=== PATIENT | female | born 1995 | race Hispanic/Latino ===

== ENCOUNTER 2018-08-17 13:43 | Outpatient (CLI) | payer OTHER ==
[2018-08-17 14:06] LABS: #Basophils 0.2 thou/uL (0.0-0.2); #Lymphocytes 5.4 thou/uL (1.20-3.40); #Monocytes 1.1 thou/uL (0.11-0.59); #Neutrophils 4.5 thou/uL (1.40-6.50); %Basophils 1.4 % (0.0-1.0); %Eosinophils 0.2 % (0.0-10.0); %Lymphocytes 48.9 % (21.0-51.0); %Monocytes 9.5 % (0.0-10.0); Mean Corpuscular HGB CONC 33.5 g/dL (32.0-36.0); Mean Corpuscular Hemoglobin 30.2 pg (27.0-31.0); Mean Corpuscular Volume 90.1 fL (78.0-98.0); Mean Platelet Volume 6.2 fL (7.4-10.4); Platelet Count 269 thou/uL (130-400); RBC Distribution Width 11.8 % (11.5-14.5); Red Blood Cell (RBC) Count 4.63 mill/uL (4.20-5.40); White Blood Cell (WBC) Count 11.1 thou/uL (4.8-10.8)
[2018-08-17 14:13] LABS: Bilirubin Small (Negative); Blood, Urine Small (Negative); Clarity Cloudy (Clear); Glucose, Urine (Dipstick) Negative (Negative); Leukocyte Small (Negative); Nitrite Negative (Negative); Protein, Urine (Dipstick) Negative (Neg-Trace); Specific Gravity, Urine 1.015 (1.005-1.030); pH, Urine 5.5 (5.0-9.0)
[2018-08-17 14:22] LABS: ALT (SGPT) 143 U/L (8-55); AST (SGOT) 57 U/L (5-34); Albumin 4.1 g/dL (3.5-5.0); Alkaline Phosphatase 466 U/L (40-150); Anion Gap 18 mmol/L (10-20); BUN (Urea Nitrogen) 9 mg/dL (7.0-18.7); Bacteria/HPF 2+ HPF (None Seen); Bilirubin, Total 1.2 mg/dL (0.2-1.2); Calc. Creatinine Clearance 0 mL/min (70-130); Calcium 9.7 mg/dL (7.8-10.44); Carbon Dioxide 23 mmol/L (22-29); Chloride 96 mmol/L (98-107); Estimated GFR-MDRD Greater than 90; Globulin 3.9 g/dL (2.4-3.5); Glucose 93 mg/dL (70-105); RBC/HPF 0-3 HPF (0-3); Sodium 133 mmol/L (136-145); Squamous Epithelial 0-3 HPF (0-3)
[2018-08-17 14:23] LABS: Oval Fat Bodies/HPF Rare HPF (None Seen)
--- NOTE | 2018-08-17 15:29 | RAD ---
PA AND LATERAL CHEST: HISTORY: Cough and fever. FINDINGS: Heart size and mediastinum are within normal limits. The lungs are clear of infiltrates. No signifi cant bony findings. IMPRESSION: No active intrathoracic disease. POS: [facility]
== END 2018-08-17 13:44 | disposition home or self-care (01) ==
LOC: SCSRAD 13:43
PROVIDERS: ATTEND Family Medicine
DX: R50.81 Fever presenting with conditions classified elsewhere (principal)
CPT/HCPCS: 36415; 71046; 80053; 81001; 84702; 85025; 87070; 87086